=== PATIENT | male | born 1990 | race Two or more races ===

== ENCOUNTER 2023-02-18 12:52 | Emergency (ER) | payer OTHER ==
[~2023-02-18] VITALS: Ht 167.6 cm; Wt 72.6 kg
[2023-02-18 14:59] LABS: HEMATOCRIT 44.7 % (39.0-48.0); HEMOGLOBIN 15.4 g/dL (13-16.00); MEAN CELL VOLUME 85.2 fL (80.0-100.00); MEAN CORPUSCULAR HEMOGLOBIN 29.4 pg (27.00-32.0); MEAN CORPUSCULAR HGB CONC 34.5 g/dl (32.0-36.0); PLATELET COUNT 241 K/uL (150-450); RED BLOOD COUNT 5.25 M/uL (4.00-6.00); RED CELL DISTRIBUTION WIDTH 12.9 % (11.5-14.5)
[2023-02-18 15:20] LABS: CALCIUM 9.5 mg/dL (8.5-10.1); CREATININE SERUM 1.1 mg/dL (0.70-1.30); GFR 77.57; POTASSIUM 3.58 mEq/L (3.5-5.1)
[2023-02-18] MEDS ORDERED: VISTARIL25 MG PO (16:19)
[2023-02-18] MEDS ORDERED: FLONASE16 GM NASAL (16:19)
== END 2023-02-18 16:51 | disposition home or self-care (01) ==
LOC: ER 12:52
PROVIDERS: Nurse Practitioner Family
DX: A49.3 Mycoplasma infection, unspecified site (principal)